=== PATIENT | female | born 1950 | race Caucasian/White ===

== ENCOUNTER 2019-08-25 08:51 | Inpatient (IN) ==
[2019-08-25] MEDS ORDERED: NS 1,000 ML IV ONE (09:29)
[2019-08-25] MEDS ORDERED: LABETALOL IV ONE ×2 (09:29→11:27)
--- NOTE | 2019-08-25 09:38 | Diag Imaging Result Doc PS360 ---
EXAM: CHEST-1 VIEW HISTORY: weakness TECHNIQUE: Single view COMPARISON: None. FINDINGS: Poor inspiratory effort. The heart is mildly enlarged. The vessels are not distended. There are no infiltrates. No effusion identified. IMPRESSION: Mild cardiomegaly Electronically signed by Stephen Olivares 08/25/2019 9:35 AM
--- NOTE | 2019-08-25 09:52 | EKG Report ---
Test Performed on : 08/25/2019 09:25:41 AM Test Reason : weakness Blood Pressure : / mmHG Vent. Rate : 111 BPM Atrial Rate : 111 BPM P-R Int : 148 ms QRS Dur : 076 ms QT Int : 336 ms P-R-T Axes : 053 019 061 degrees QTc Int : 456 ms Sinus tachycardia. with fusion complexes Otherwise normal ECG No previous ECGs available Unconfirmed Result
[2019-08-25 09:58] LABS: ALLEN TEST NO; BE -2.2 mmoll (-3.0-3.0); BLOOD TYPE ARTERIAL; HCO3-(ACT) 23.1 mmoll (20.0-26.0); METHB 1.5 % (0.0-1.5); MODALITY ROOM AIR; O2(CT) 19.1 mL/dL (15.0-23.0); O2HB 93.7 % (95.0-99.0); PCO2(98.6) 32 mmHg (35-45); PO2(98.6) 69 mmHg (60-100); SAMPLE BLOOD; SAO2 96.7 % (95.0-100.0); THB 14.5 g/dL (11.5-17.4); pH(98.6) 7.43 (7.35-7.45)
[2019-08-25] MEDS ORDERED: ZOSYN 4.5 GM in NS 100 ML IV ONE (10:05)
[2019-08-25] MEDS ORDERED: DIFLUCAN 400 MG/NS 400 MG/200 ML IVPB IV ONE (10:05)
[2019-08-25 10:11] LABS: URINE SOURCE CATH
[2019-08-25 10:14] LABS: BASO# 0.02 X1000 (0.0-0.2); BASO% 0.2 % (0.0-0.8); HEMATOCRIT 43.9 % (37.0-47.0); HEMOGLOBIN 14.3 g/dL (12.0-16.0); IMM GRAN# 0.02 X1000 (0.0-0.04); IMM GRAN% 0.2 % (0.0-0.5); LYMPH# 0.46 X1000 (1.2-3.4); LYMPH% 4.8 % (20.5-51.1); MCH 30.3 PG (27-31); MCHC 32.6 g/dL (33-37); MONO# 1.03 X1000 (0.11-0.59); MONO% 10.8 % (1.7-9.3); MPV 8.9 FL (7.4-10.4); NEUT# 7.98 X1000 (1.4-6.5); PLT 289 X1000 (130-400); RBC 4.72 XMIL (4.2-5.4); RDW 13.1 % (11.5-14.5); WBC 9.51 X1000 (4.8-10.8)
[2019-08-25 10:16] LABS: BILIRUBIN URINE NEGATIVE (NEGATIVE); BLOOD URINE SMALL (NEGATIVE); COLOR YELLOW; GLUCOSE URINE NEGATIVE (NEGATIVE); KETONE URINE TRACE mg/dL (NEGATIVE); LEUKOCYTES URINE NEGATIVE (NEGATIVE); NITRITE URINE NEGATIVE (NEGATIVE); PH URINE 5.5; PROTEIN URINE 50 mg/dL (NEGATIVE); SP GRAVITY URINE 1.027; TURBIDITY URINE CLEAR (CLEAR); UROBILINOGEN URINE NORMAL (NORMAL)
[2019-08-25 10:17] LABS: UR EPITHELIAL CELLS <10 /HPF (<10); URINE BACTERIA NEGATIVE /HPF; URINE RBC <10 /HPF (<10); URINE WBC <10 /HPF (<10)
--- NOTE | 2019-08-25 10:43 | Diag Imaging Result Doc PS360 ---
EXAM: KNEE 3 VIEWS LEFT HISTORY: left knee pain, falling TECHNIQUE: Three views COMPARISON: None. FINDINGS: No fracture. No dislocation. Marked medial joint space narrowing. There is bone spurring to the femoral condyles and medial tibial plateau. There is also patellofemoral joint space narrowing with small patellar bone spurs. IMPRESSION: No acute bony injury. Severe arthritis Electronically signed by Stephen Olivares 08/25/2019 10:40 AM
--- NOTE | 2019-08-25 10:43 | Diag Imaging Result Doc PS360 ---
EXAM: KNEE 3 VIEWS RIGHT HISTORY: right knee pain, falling TECHNIQUE: Three views COMPARISON: None. FINDINGS: No fracture. No dislocation. Marked medial joint space narrowing. Small bone spurs. IMPRESSION: No acute bony injury. Moderate to prominent arthritis. Electronically signed by Stephen Olivares 08/25/2019 10:41 AM
[2019-08-25 10:58] LABS: CK PROFILE 736 U/L (24-173); INR 0.99; PROTIME 13.2 Seconds (11.0-16.0)
--- NOTE | 2019-08-25 11:10 | Diag Imaging Result Doc PS360 ---
EXAM: CT HEAD W/O CONTRAST HISTORY: multiple falls, hypertensive TECHNIQUE: CT head without intravenous contrast COMPARISON: None. FINDINGS: No parenchymal hemorrhage. No epidural or subdural hematoma. No subarachnoid hemorrhage. There are chronic microvascular ischemic changes with small old right infarct near the anterior horn of the internal capsule. No mass identified on this noncontrasted exam. No hydrocephalus. No skull fracture. IMPRESSION: 1.No hemorrhage. No injury. 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 Electronically signed by Stephen Olivares 08/25/2019 11:08 AM
[2019-08-25 11:18] LABS: AGAP 18; ALB/GLOB RATIO 1.1; ALBUMIN 4.1 g/dL (3.5-5.0); ALKALINE PHOSPHATASE 88 U/L (32-104); BUN 19 mg/dL (8-22); CALCIUM 9.8 mg/dL (8.8-10.2); CHLORIDE 99 mmol/L (98-107); COSMO 281; CREATININE 0.9 mg/dL (0.5-0.9); ESTIMATED GFR > 60; GLUCOSE 152 mg/dL (70-104); GOT 39 U/L (10-30); GPT 18 U/L (10-36); MAGNESIUM 1.8 mg/dL (1.5-2.7); POTASSIUM 4.4 mmol/L (3.5-5.1); SODIUM 138 mmol/L (136-145); TCO2 21 mmol/L (25-35); TOTAL BILIRUBIN 0.54 mg/dL (0.20-1.00); TOTAL PROTEIN 7.7 g/dL (6.3-8.3)
[2019-08-25 11:21] LABS: CK INDEX 1.1 (0.0-2.5); CK-MB 8.29 ng/mL (0.0-5.0)
[2019-08-25] MEDS ORDERED: TAMIFLU PO ONE (11:45)
--- NOTE | 2019-08-25 12:00 | PROVIDER DOCUMENTATION ---
This chart was entered by Radha Giraldo Scribe, acting as scribe for Rom Sandoval MD. HPI-General Adult - General Chief Complaint: SEPSIS ALERT - D Stated Complaint: FALLS/ GENERALIZED WEAKNESS Time Seen by Provider: 08/25/19 09:24 Source: patient, EMS Allergies/Adverse Reactions: Patient Allergies Allergy/AdvReac Type Severity Reaction Status Date / Time chocolate flavor Allergy HIVES Verified 08/25/19 09:17 - History of Present Illness -Gen Adult Nature of Presenting Problems: 69 yof presents to the ed with c/o multiple falls in the last 24 hrs. pt sts was going to the bathroom this am when she went to sit missed the toilet and fell onto her knees. pt is morbidly obese and unable to get herself up without lift assist from ems. ems sts they have been to her home 4x in the last 24hrs so this time they brought pt to the ed. pt sts weakness, sob and cough have worsened since onset. pt has not bruising or abrasion seen on exam Location of Pain/Injury: reports: generalized (weakness) Quality of Pain: reports: other (weakness) Severity: reports: moderate Onset/Duration: reports: gradual Timing: reports: still present, intermittent, getting worse Context/Activities at Onset: reports: light activity Modifying Factors: improves with: nothing Associated Symptoms: reports: cough, shortness of breath, weakness, trouble walking. denies: back/neck pain, chest pain, fever/chills, headaches, nausea, vomiting Similar Symptoms Previously?: Yes (frequent falls) Recently seen or treated by another doctor?: No Review of Systems - Adult - REVIEW OF SYSTEMS - ADULT Constitutional: denies: chills, fever Eyes: reports: no symptoms reported Ears, Nose, Mouth & Throat: reports: no symptoms reported Cardiovascular: reports: heart murmur. denies: chest pain, palpitations Respiratory: reports: see HPI, cough, shortness of breath. denies: wheezing Gastrointestinal: denies: abdominal pain, diarrhea, nausea, vomiting Genitourinary: reports: no symptoms reported Musculoskeletal: reports: see HPI, muscle weakness (generalized). denies: neck pain Integumentary: reports: no symptoms reported Neurological: denies: dizziness/vertigo, headache/migraines Psychiatric: reports: no symptoms reported Endocrine: reports: no symptoms reported Hematologic/Lymphatic: reports: no symptoms reported Allergic/Immunologic: reports: no symptoms reported All Other Systems: Reviewed and Negative Past History - Adult - PAST MEDICAL HISTORY-ADULT Review of Records: reports: Old Records Reviewed, Nursing Assessment Review, Medications Reviewed, Social history reviewed & non-contributory. Major Childhood Illnesses: reports: denies history Cardiovascular: reports: HTN Respiratory: reports: denies history Gastrointestinal: reports: denies history Obstetrical/Gynecological: reports: denies history Genitourinary: reports: denies history Musculoskeletal: reports: denies history Neurological: reports: denies history Psychiatric: reports: denies history Endocrine/Immune: reports: Diabetes Diabetes Type: Type 2 Other Conditions: reports: denies history - PRIOR SURGERIES/PROCEDURES Surgical/Procedure History: reports: reviewed, not pertinent - IMMUNIZATION STATUS Childhood Immunizations: See Nurse Assessment Flu Vaccine: See Nurse Assessment - FAMILY HISTORY Family History: reviewed, not pertinent - SOCIAL HISTORY Smoking: denies Substance Use: denies Alcohol Use Frequency: never Living Situation: family Physical Exam-General - PHYSICAL EXAM-ADULT Initial Vital Signs Reviewed: Yes (noted BP-210/103 HR-115 RR-25) - CONSTITUTIONAL General Appearance: appears well, alert, mild distress, obese - EYES Eyes: PERRL/EOMI, pink conjunctivae - HEAD, EARS, NOSE, MOUTH & THROAT HENMT: dental decay. negative: moist mucous membranes (dry oral) - NECK Neck: non-tender, supple, normal inspection - RESPIRATORY Respiratory: chest non-tender, lungs clear, normal breath sounds, increased rate (25) - CARDIOVASCULAR Cardiovascular: normal peripheral pulses, tachycardia (115), systolic murmur (2.6 right upper sternal border) - CHEST (BREASTS) Chest/Breast: other (yeast present under breast in skin fold red moist) - GASTROINTESTINAL (ABDOMEN) Abdominal Exam: normal bowel sounds, non tender, soft, other (yeast seen in skin fold with redness and moisture) - GENITOURINARY Female Genitalia/Pelvic Exam: deferred Rectal Exam: deferred Hemoccult Exam: deferred - LYMPHATIC Lymphatic: no adenopathy - MUSCULOSKELETAL Back Exam: no CVA tenderness, no vertebral tenderness Extremity: normal range of motion, normal capillary refill, pelvis stable, tenderness (bilateral knees), other (c/o generalized weakness and normally ambulates with a walker). negative: deformity, erythema, swelling - SKIN Integumentary: erythema (panis and under breast in skin folds only with moisture noted). negative: abrasion(s), ecchymosis, laceration(s) - NEUROLOGIC Neurologic: grossly normal - PSYCHIATRIC Psych/Mental Status: normal mood/affect, normal thought content, oriented x 3 Progress - PLAN OF CARE/RESULTS Progress/Plan/Lab Results: Vital Signs - 8 hr 08/25/19 09:11 08/25/19 10:08 Temperature 98.2 F Pulse Rate 115 H 104 H Respiratory Rate 25 H 21 Blood Pressure 210/103 208/111 O2 Sat by Pulse Oximetry 96 94 L Laboratory Results - last 24 hr 08/25/19 08/25/19 08/25/19 09:42 09:45 10:00 WBC 9.51 RBC 4.72 Hgb 14.3 Hct 43.9 MCV 93.0 MCH 30.3 MCHC 32.6 L RDW Std Deviation 13.1 Plt Count 289 MPV 8.9 Immature Gran % (Auto) 0.2 Neut % (Auto) 84.0 H Lymph % (Auto) 4.8 L [place] % (Auto) 10.8 H Eos % (Auto) 0.0 Baso % (Auto) 0.2 Immature Gran # (Auto) 0.02 Neut # (Auto) 7.98 H Lymph # (Auto) 0.46 L [place] # (Auto) 1.03 H Eos # (Auto) 0.00 Baso # (Auto) 0.02 Specimen Type ARTERIAL Sample Site R BRACHIAL pH 7.43 pCO2 32 L pO2 69 HCO3 23.1 Base Excess -2.2 Oxyhemoglobin 93.7 L ABG O2 Sat (Calculated) 19.1 ABG O2 Saturation 96.7 ABG Carboxyhemoglobin 1.60 ABG Methemoglobin 1.5 Giuseppe Test NO A-a O2 Difference 41.0 Total Hemoglobin 14.5 Lactate 1.30 Blood Gas Modality ROOM AIR FiO2 % 21.0 Urine Source CATH Urine Color YELLOW Urine Turbidity CLEAR Urine pH 5.5 Ur Specific [place] 1.027 Urine Protein 50 A Ur Glucose (Stick) NEGATIVE Ur Ketones (Stick) TRACE A Urine Blood SMALL A Urine Nitrite NEGATIVE Urine Bilirubin NEGATIVE Urobilinogen Dipstick NORMAL Urine Leukocytes NEGATIVE Urine WBC (Auto) <10 Urine RBC (Auto) <10 U Epithel Cells (Auto) <10 Urine Bacteria (Auto) NEGATIVE Orders Category Date Time Status Cardiac Monitoring DIRECTED Care 08/25/19 09:17 Active [place] Cath Insertion ORDERED Care 08/25/19 09:29 Active IV Insertion ORDERED Care 08/25/19 09:17 Completed Notify MD of + Sepsis Screen NOW Care 08/25/19 09:17 Active Notify Physician As Ordered Care 08/25/19 09:17 Active CHEST-1 VIEW [RAD] Stat Exams 08/25/19 09:[address] HEAD W/O CONTRAST [CT] Stat Exams 08/25/19 09:28 Ordered KNEE 3 VIEWS LEFT [RAD] Stat Exams 08/25/19 09:27 Ordered KNEE 3 VIEWS RIGHT [RAD] Stat Exams 08/25/19 09:27 Ordered ABG [RESP] Routine Lab 08/25/19 09:45 Completed BLOOD CULTURE [BLDCUL] Stat Lab 08/25/19 10:00 Received CBC WITH DIFF [HEME] Stat Lab 08/25/19 10:00 Completed CK PROFILE [SP CHEM] Stat Lab 08/25/19 10:00 Received COMPREHENSIVE METABOLIC PANEL [CHEM] Stat Lab 08/25/19 10:00 Received INFLUENZA SCREEN A/B Stat Lab 08/25/19 10:13 Received LACTATE, PLASMA [CHEM] Lab 08/25/19 10:00 Received LACTATE, PLASMA [CHEM] Lab 08/25/19 12:30 Uncollected LACTATE, PLASMA [CHEM] Lab 08/25/19 15:30 Uncollected MAGNESIUM [CHEM] Stat Lab 08/25/19 10:00 Received PRO B-NATRIURETIC PEPTIDE Stat Lab 08/25/19 10:00 Received PROTIME WITH INR [COAG] Stat Lab 08/25/19 10:00 Received PTT [COAG] Stat Lab 08/25/19 10:00 Received TROPONIN T HIGH SENSITIVITY Stat Lab 08/25/19 10:00 Received TSH Stat Lab 08/25/19 10:00 Received URINALYSIS W/POSS RFLX CULT [URINALYSIS] Stat Lab 08/25/19 09:42 Completed 0.9% Sodium Chloride Inj [Ns] 1,000 ml Med 08/25/19 09:29 Active IV 999 mls/hr Fluconazole 400 mg/Ns [Diflucan 400 mg/Ns] Med 08/25/19 10:05 Active 400 mg in 200 ml IV NOW Labetalol Med 08/25/19 09:29 Discontinued 20 mg IV NOW ONE Piperacillin/Tazobactam [Zosyn] 4.5 gm Med 08/25/19 10:05 Active 0.9% Sodium Chloride Inj [Ns] 100 ml IV NOW Oxygen Device Stat Oth 08/25/19 09:17 Active EKG [EKG] Stat Ther 08/25/19 09:[address] wong was called due to pt sts this is PCP. dr wong sts this is not his pt Result Diagrams: 08/25/19 10:00 08/25/19 10:00 - REASSESSMENT Reassessment #1 Time Reassessed: 11:31 ( at bedside sts pt is to weak to ambulate with a walker now and falls started yesterday. pt sts she saw dr wong 2 months prior and he is her pmd) Status: improving Reassessment #2 Time Reassessed: 11:52 Status: unchanged ( is not comfortable taking her home as he had to call for lift assistance from EMS 4 times in last 24 hours.) - EKG 1 Time of EKG reading by physician:: 09:25 EKG Read and Signed by:: Rom Sandoval EKG Interpretation (*Must complete 3 of following elements*): Normal Rate: 111 Rhythm: sinus tachycardia with fusion complexes [place]: normal QRS: normal [place] Interval: normal ST Wave: normal Comments: artifact present - XRAY 1 XRAY: Bilateral XRAY Study: Chest Impression: See EMR Report (EXAM: CHEST-1 VIEW HISTORY: weakness TECHNIQUE: Single view COMPARISON: None. FINDINGS: Poor inspiratory effort. The heart is mildly enlarged. The vessels are not distended. There are no infiltrates. No effusion identified. IMPRESSION: Mild cardiomegaly Electronically signed by Stephen Olivares 08/25/2019 9:35 AM 08/25/19934 Interpreting Physician: Stephen Olivares MD Dictated Date/Time: 08/25/19934 cc: Rom Sandoval MD; Mello Wong MD) 2 XRAY: Left XRAY Study: Knee Impression: See EMR Report (HISTORY: left knee pain, falling TECHNIQUE: Three views COMPARISON: None. FINDINGS: No fracture. No dislocation. Marked medial joint space narrowing. There is bone spurring to the femoral condyles and medial tibial plateau. There is also patellofemoral joint space narrowing with small patellar bone spurs. IMPRESSION: No acute bony injury. Severe arthritis Electronically signed by Stephen Olivares 08/25/2019 10:40 AM 08/25/19 1040 Interpreting Physician: Stephen Olivares MD Dictated Date/Time: 08/25/19 1040 cc: Rom Sandoval MD; Mello Wong MD) 3 XRAY: Right XRAY Study: Knee Impression: See EMR Report (EXAM: KNEE 3 VIEWS RIGHT HISTORY: right knee pain, falling TECHNIQUE: Three views COMPARISON: None. FINDINGS: No fracture. No dislocation. Marked medial joint space narrowing. Small bone spurs. IMPRESSION: No acute bony injury. Moderate to prominent arthritis. Electronically signed by Stephen Olivares 08/25/2019 10:41 AM 08/25/19 1041 Interpreting Physician: Stephen Olivares MD Dictated Date/Time: 08/25/19 1041 cc: Rom Sandoval MD; Mello Wong MD) - CT/MRI 1 CT Study: Head Impression: See EMR Report (EXAM: CT HEAD W/O CONTRAST HISTORY: multiple falls, hypertensive TECHNIQUE: CT head without intravenous contrast COMPARISON: None. FINDINGS: No parenchymal hemorrhage. No epidural or subdural hematoma. No subarachnoid hemorrhage. There are chronic microvascular ischemic changes with small old right infarct near the anterior horn of the internal capsule. No mass identified on this noncontrasted exam. No hydrocephalus. No skull fracture. IMPRESSION: 1.No hemorrhage. No injury. 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 Electronically signed by Stephen Olivares 08/25/2019 11:08 AM 08/25/19 1108 Interpreting Physician: Stephen Olivares MD Dictated Date/Time: 08/25/19 1106 cc: Rom Sandoval MD; Mello Wong MD) - CONSULTS/PCP/HOSPITALIST Notification #1 *Consult/PCP/Hospitalist*: Maryan Time Discussed: 11:53 Consult Disposition: Admit (requests I write some holding orders) Departure - Departure Date of Disposition Decision: 08/25/19 Time of Disposition Decision: 11:53 DIAGNOSIS: Frequent falls, Influenza A, Malignant hypertension, Intertriginous candidiasis Disposition: ADMITTED INPATIENT 09 Certified Medical Emergency: Emergent Condition: Stable Referrals and Follow-Ups: Mello Wong MD [Primary Care Provider] - - Critical Care Note This patient required my direct & personal management of CC.: Yes Total Time (mins): 35 Critical Care Statement: This patient required my direct personal management to treat or rule out processes, the absence of which, could potentiallly result in sudden, clinically significant life or limb threatening deterioration. Attestation - Physician/ KG Attestation Patient care was provided by Advanced Practice Provider:: No The physician spent face to face time with patient:: Yes Advanced Practice Provider documentation review:: Supervising physician onsite and consulted in the evaluation and care of this patient. The physician did have a face to face encounter with the patient. This chart was documented by the indicated scribe, (Radha Giraldo Scribe) and accurately reflects the services I performed and decisions made by me, Rom Sandoval MD, as attested by the provider's signature.
[2019-08-25] MEDS ORDERED: ZOFRAN PO PRN (12:01)
[2019-08-25] MEDS ORDERED: LABETALOL IV PRN (12:02)
[2019-08-25] MEDS ORDERED: PRINIVIL PO ONE (13:28)
[2019-08-25] MEDS ORDERED: SOLU-MEDROL IV ONE (17:04)
--- NOTE | 2019-08-25 18:35 | HISTORY AND PHYSICAL ---
CHIEF COMPLAINT: Generalized weakness and falling at home. HISTORY OF PRESENT ILLNESS: Mrs. Gonzalez is a 69-year-old morbidly obese white female with a history of hypertension, diabetes, and recurrent venous stasis of both lower legs. She was brought to the emergency room today by EMS after the fourth call to pick her up off the floor in 24 hours. She says she was feeling better yesterday and got in the car and drove her granddaughter to school but decided she was too tired to go grocery shopping afterwards. She returned home and while getting into the bathtub she slipped and fell and her was unable to pick her up. They had to call EMS. Later in the day, she fell again and they again called EMS. Apparently today, after the second fall, they insisted on bringing her here to the emergency room for evaluation. She said she has been coughing for at least a week and has occasionally noticed some wheezing. She has felt alternatively hot and cold but has not checked her temperature at home. Her emergency room evaluation by the emergency room physician found normal CBC and Pro time. A blood gas was nearly normal with a CO2 of 32, O2 69 on room air. Chemistry profile was remarkable for a CO2 of 21, glucose 152, AST 39. CPK 736. Troponin 30. ProBNP 970. Normal serum lactate and normal TSH. Urinalysis shows trace of ketones, mild proteinuria, and trace of blood. This was on a cath specimen. Flu screen was positive for influenza A. PAST MEDICAL HISTORY: Positive for hypertension, obstructive sleep apnea, and diabetes although she is surprisingly well controlled with recent hemoglobin A1c at 6.5. She uses a CPAP nightly. ALLERGIES: No known drug allergies. She says she is allergic to chocolate flavor by mouth. HOME MEDICATIONS: Lasix 40 mg q a.m., lisinopril 20 mg daily, metformin 500 mg daily with supper. FAMILY HISTORY: Positive for presbycusis and diabetes and hypertension. Negative for coronary disease. SOCIAL HISTORY: She is and lives with her in [place]. She has never smoked tobacco. She rarely, if ever, consumes any alcohol. REVIEW OF SYSTEMS: General: Minimal headache. Occasional fevers, feelings without documented temperature. Appetite has been minimal today, less than usual yesterday, but normal prior to that. Her has been ill with flu like symptoms for several days. HEENT: She is very hard of hearing and wears hearing aides bilaterally. She denies significant sinus pressure or drainage. She has mild sore throat but no earache. Respiratory: Frequent coughing for the past two to three days, moderate white, foamy sputum produced. Occasional wheezing but no previous history of asthma. She has chronic mild dyspnea on exertion, walking from one end of her house to the other end. Cardiovascular: No recent chest pain. She has a history of rheumatic fever and an echocardiogram last year documented mild aortic stenosis. She denies palpitations, orthopnea, PND. She has intermittent pedal edema related to venous valvular incompetence in her lower legs. GI: Appetite has been good until recently. No nausea or vomiting. No hematemesis. No melena or bright red blood per rectum. : No dysuria. She does have some redness and burning sensation under her breasts and in the groin area bilaterally. Neurologic: No history of strokes or seizures. Rheumatologic: She has bilateral osteoarthritis in the knees and that contributes to her difficulty getting up from the floor. Dermatologic: Positive for skin fold rash, otherwise negative. PHYSICAL EXAMINATION: VITAL SIGNS: Temperature is 98.2, pulse of 86, respirations 22, blood pressure 178/63. Room air O2 saturation was 96%. Weight is 252 pounds. Height is 5 ft 3 inches. GENERAL APPEARANCE: Short, morbidly obese, elderly woman lying on a stretcher, but alert and talkative. SKIN: Warm and dry with some redness under the breasts and under her panniculus and in the groin area. HEENT: Pupils equal, round, and reactive to light. Extraocular movements intact. She is hard of hearing. Oropharynx is benign with dentures. NECK: Supple with no adenopathy, JVD, thyromegaly or bruits. LUNGS: Soft, diffuse musical wheezing throughout. Expiratory phase is mildly prolonged. Air movement is fairly good. CARDIOVASCULAR: Regular rate and rhythm. No S3 is appreciated. There is a 2/6 systolic ejection murmur at the right upper sternal border. ABDOMEN: Obese. Soft and nontender. Active bowel sounds. There is no guarding or rebound tenderness. EXTREMITIES: No ankle or foot edema. She has stasis dermatitis on both lower legs. NEUROLOGICAL: Mental status is normal with recent and remote memory testing. Her speech is clear and well articulated. Cranial nerve examination is unremarkable. She moves all extremities on command. Gait is not tested. DATA BASE: Bilateral knee x-rays show moderate to severe osteoarthritis. Head CT does show a small old right infarct near the right anterior horn of the internal capsule along with chronic microvascular changes. Chest x-ray shows poor inspiratory effort with mild cardiomegaly; no infiltrates, effusions, or distended blood vessels. ASSESSMENT: 1. Sudden marked weakness, probably due to acute influenza A. Her ability to ambulate is also compromised by her morbid obesity and osteoarthritis of the knees. 2. Hypertension. Markedly hypertensive on presentation but now approaching normotension. Her home medications will be resumed. 3. Acute asthmatic bronchitis due to influenza. In spite of her diabetes will try a few doses of low-dose Solu-Medrol. 4. Type 2 diabetes mellitus. 5. Morbid obesity. TREATMENT PLAN: Admit for Physical Therapy evaluation and progressive ambulation. Will continue her Tamiflu and give several doses of Solu-Medrol 40 mg q 12 hours and hopefully transition to lower dose oral therapy soon. She will be continued on her Lasix, metformin, and lisinopril. She will continue using her home CPAP. cc: Mello Steinberg MD
[2019-08-25] MEDS ORDERED: TESSALON PO PRN (21:00)
[2019-08-25] MEDS: MYCOSTATIN OINTMENT TOP SCH (21:51)
[2019-08-25] MEDS: TYLENOL PO PRN (21:52)
[2019-08-25] MEDS: GLUCOPHAGE PO SCH (21:52)
[2019-08-25] MEDS: TAMIFLU PO SCH (21:52)
[2019-08-26] MEDS: SOLU-MEDROL IV SCH ×2 (06:17→17:52)
[2019-08-26] MEDS ORDERED: DIFLUCAN PO SCH (09:00)
[2019-08-26] MEDS ORDERED: CARDIZEM PO ONE (09:07)
[2019-08-26] MEDS: TAMIFLU PO SCH ×2 (10:29→23:09)
[2019-08-26] MEDS: MYCOSTATIN OINTMENT TOP SCH (10:30)
[2019-08-26] MEDS: PRINIVIL PO SCH (10:30)
[2019-08-26] MEDS: LASIX PO SCH (10:30)
[2019-08-26] MEDS: TYLENOL PO PRN ×2 (10:32→17:55)
[2019-08-26] MEDS: CARDIZEM CD PO SCH (23:09)
[2019-08-26] MEDS: GLUCOPHAGE PO SCH (23:09)
[2019-08-27] MEDS: MYCOSTATIN OINTMENT TOP SCH ×3 (01:12→22:07)
[2019-08-27] MEDS: SOLU-MEDROL IV SCH (05:18)
[2019-08-27] MEDS: PRINIVIL PO SCH (09:18)
[2019-08-27] MEDS: TAMIFLU PO SCH ×2 (09:18→22:07)
[2019-08-27] MEDS: LASIX PO SCH (09:19)
[2019-08-27] MEDS: CARDIZEM CD PO SCH (22:07)
[2019-08-27] MEDS: GLUCOPHAGE PO SCH (22:07)
[2019-08-28] MEDS: PRINIVIL PO SCH (10:28)
[2019-08-28] MEDS: TAMIFLU PO SCH ×2 (10:28→21:05)
[2019-08-28] MEDS: MYCOSTATIN OINTMENT TOP SCH ×2 (10:29→21:05)
[2019-08-28] MEDS: LASIX PO SCH (10:29)
[2019-08-28] MEDS: TYLENOL PO PRN (10:39)
[2019-08-28] MEDS: GLUCOPHAGE PO SCH (21:05)
[2019-08-28] MEDS: CARDIZEM CD PO SCH (21:05)
[2019-08-29] MEDS: PRINIVIL PO SCH (08:12)
[2019-08-29] MEDS: TAMIFLU PO SCH ×2 (08:12→20:51)
[2019-08-29] MEDS: TYLENOL PO PRN ×2 (08:12→20:54)
[2019-08-29] MEDS: LASIX PO SCH (08:12)
[2019-08-29] MEDS: MYCOSTATIN OINTMENT TOP SCH (08:15)
[2019-08-29 08:30] LABS: HEMATOCRIT 41.8 % (37.0-47.0); HEMOGLOBIN 13.6 g/dL (12.0-16.0); MCH 30.2 PG (27-31); MCHC 32.5 g/dL (33-37); MCV 92.7 FL (81-99); MPV 10.1 FL (7.4-10.4); RBC 4.51 XMIL (4.2-5.4); RDW 13.1 % (11.5-14.5); WBC 10.13 X1000 (4.8-10.8)
[2019-08-29 08:49] LABS: CREATININE 1.1 mg/dL (0.5-0.9)
[2019-08-29] MEDS ORDERED: CALMOSEPTINE OINTMENT TOP PRN (10:32)
[2019-08-29] MEDS: CARDIZEM CD PO SCH (20:51)
[2019-08-29] MEDS: GLUCOPHAGE PO SCH (20:51)
[2019-08-30] MEDS: MYCOSTATIN OINTMENT TOP SCH ×3 (01:24→21:19)
[2019-08-30] MEDS: TYLENOL PO PRN ×2 (09:31→21:18)
[2019-08-30] MEDS: TAMIFLU PO SCH (09:32)
[2019-08-30] MEDS: LASIX PO SCH (09:32)
[2019-08-30] MEDS: PRINIVIL PO SCH (09:32)
--- NOTE | 2019-08-30 12:46 | PROGRESS NOTE ---
DATE: 08/30/2019 SUBJECTIVE: The patient states that she is feeling better, but feels very tired and weak, "like I have had the flu or something." She gives a long history of lung involvement for almost every infection that she has happened upon during her lifetime, ever since childhood. OBJECTIVE: Vital Signs: Temperature 98.2, pulse 80, respirations 14, blood pressure 158/64, saturating 96% on room air. General: She is an obese, white female, who is in no acute distress. She is alert, oriented, conversive, and appropriate. Lungs: The patient's lungs show wheezing, much prominent on the right side than the left, but nevertheless present on both sides. There are no crackles. This is a change from Dr. Steinberg's documented exam yesterday. Cardiovascular: Regular. Extremities: No peripheral edema. ASSESSMENT AND PLAN: 1. The patient was treated for influenza. She is slow to recover from that. Due to her lung history, this has resulted in some wheezing. I am going to start some albuterol and ipratropium aerosols, and monitor her progress from that standpoint. 2. The patient's continued weakness and overall fatigability will likely result in rehabilitation stay for her. 3. The patient has a known history of hypertension. 4. Repeat white count was normal. BUN was markedly elevated at 59, and creatinine at 1.1. Both of those were up from when she came in the hospital on 08/25/2019. We will recheck this tomorrow, and make adjustments in all of her therapy based on those findings. cc: MD Mello Padilla MD
[2019-08-30] MEDS: DUONEB (A & A) INH SCH ×2 (15:19→23:02)
[2019-08-30] MEDS: GLUCOPHAGE PO SCH (21:14)
[2019-08-30] MEDS: CARDIZEM CD PO SCH (21:14)
[2019-08-31] MEDS: DUONEB (A & A) INH SCH (08:29)
[2019-08-31] MEDS: MYCOSTATIN OINTMENT TOP SCH (09:04)
[2019-08-31 09:05] LABS: CALCIUM 10.1 mg/dL (8.8-10.2); POTASSIUM 4.4 mmol/L (3.5-5.1)
[2019-08-31] MEDS: PRINIVIL PO SCH (09:05)
[2019-08-31] MEDS: LASIX PO SCH (09:05)
--- NOTE | 2019-08-31 09:53 | DISCHARGE SUMMARY ---
ADMISSION DATE: 08/27/2019 DISCHARGE DATE: 08/31/2019 FINAL DIAGNOSES: 1. Acute influenza A. 2. History of frequent falling at home, multifactorial. 3. Muscle weakness, generalized, secondary to influenza. 4. Morbid obesity. 5. Severe osteoarthritis of both knees. 6. Obstructive sleep apnea treated with BiPAP. 7. Type 2 diabetes mellitus, well controlled. HISTORY OF PRESENT ILLNESS: Ms. Gonzalez is a 69-year-old white female with a history of hypertension, diabetes and venostasis of both lower legs. She became ill several days prior to admission and had fallen 4 times within the previous 24 hours. Her was unable to pick her up due to her obesity, and the paramedics insisted on taking her to the hospital for evaluation after the fourth call in 24 hours. In the emergency room, her blood work was mostly unremarkable, but she did have a flu screen positive for influenza A. She had been coughing for approximately a week and felt alternating hot and cold at home. On physical examination, she was initially afebrile but developed a temperature of 102.6 within the first 12 hours after admission. Blood pressure was slightly elevated at 178/63. Skin exam was warm and dry with some erythema under her breasts and under her panniculus. There was moderate venostasis noted on both shins. Lungs were remarkable for soft diffuse musical wheezing throughout. Cardiovascular: Regular rate and rhythm. No S3. A 2/6 systolic ejection murmur was heard at the right upper sternal border. Chest x-ray was remarkable for limited inspiratory effort, mild cardiomegaly. HOSPITAL COURSE: She was admitted to the Medical Floor and treated with oral Tamiflu. Her antihypertensive regimen was augmented with the addition of diltiazem 240 mg daily. She got 2 doses of Solu Medrol intravenously which resolved her wheezing. She was continued on her metformin for diabetes. She brought her BiPAP machine from home and used it nightly. She was seen by Physical Therapy and progressed slowly but steadily and at the time of discharge is able to stand with her walker and transfer with standby assistance to the bedside chair. She has not walked farther than 10 feet, and I feel she will need subacute rehab for 2 to 3 weeks to regain her mobility at home. She was discharged in improved condition and to return to my office in 8 to 14 days after discharge from rehab. DISCHARGE MEDICATIONS: Calmoseptine ointment topically as needed for moisture barrier, acetaminophen 650 mg q.6 hours as needed for fever or pain, diltiazem CD 240 mg nightly at bedtime, nystatin ointment topically twice a day to her groin and under her panniculus and under her breasts, benzonatate 100 mg q.6 hours p.r.n. for cough, lisinopril 20 mg daily, metformin 500 mg daily with supper, furosemide 40 mg q.a.m. cc: Mello Steinberg MD
[2019-08-31 11:42] VITALS: BP 149/81
[2019-08-31] MEDS: TYLENOL PO PRN (15:07)
== END 2019-08-31 15:07 | DRG 194 ==
LOC: SUPCPDRO → ED 08:51 → EDIPHOLD 08:51 → 3N 18:00
PROVIDERS: ADMIT Internal Medicine; ATTEND Internal Medicine